=== PATIENT | male | born 1960 | race Caucasian/White ===

== ENCOUNTER → 2019-10-15 11:50 | Outpatient (CLI) | payer OTHER, SELFPAY ==
--- NOTE | ~2019-10-15 | XR_ITS ---
EXAMINATION: XR chest 2V DATE: 10/15/2019 11:59 INDICATION: Pneumonia, unspecified organism. TECHNIQUE: Frontal and lateral views of the chest were obtained. COMPARISON: Chest 2 views 04/23/2013 FINDINGS: There is mild atelectasis in right lower lung zone. No pleural effusion or pneumothorax. Th e heart size is normal. IMPRESSION: 1. Mild atelectasis in right lower lung zone. Reviewed, dictated and finalized at location A. OR VICE PRESIDENT AND CHIEF INFORMATION OFFICER
== END ==
PROVIDERS: PCP Physician Assistant; Visit Provider Physician Assistant
DX: J18.9 Pneumonia, unspecified organism (principal); R91.8 Other nonspecific abnormal finding of lung field
CPT/HCPCS: 71046

== ENCOUNTER → 2019-11-05 08:36 | Outpatient (CLI) | payer OTHER, SELFPAY ==
--- NOTE | ~2019-11-05 | MR_ITS ---
EXAMINATION: MR knee LT wo con DATE: 11/05/2019 09:17 INDICATION: Medial meniscal tear presenting with left knee pain and popping. TECHNIQUE: Magnetic resonance imaging (MRI) of the left knee was performed without intravenous contra st. Sequences included coronal PD-weighted FSE, coronal PD-weighted FS FSE, sagittal T2-weighted FSE , sagittal PD-weighted FS FSE and axial PD weighted fat saturated FSE. COMPARISON: None. FINDINGS: Medial compartment: Longitudinal vertical tear extending to the intra-articular surface and the peripheral third of the p osterior horn of the meniscus extending anteriorly into the body where it appears to progress to also involve the superior articular surface and the peripheral third. Chondral fissuring with subtle unde rlying cortical irregularity and a couple tiny subarticular cysts at the posterior weightbearing medi al femoral condyle. Lateral compartment: Lateral meniscus is normal. Partial-thickness cartilage loss with smooth chondral surface along the l ateral side of the posterior weightbearing lateral femoral condyle. Patellofemoral compartment: Patellar chondral ulceration and deep fissuring centered at the patellar apical ridge with underlying mild cortical irregularity and underlying mild subarticular edema. Trochlear cartilage is normal. Ligaments and tendons: Anterior and posterior cruciate ligaments are normal. The medial collateral ligament and fibular marek ateral ligament complex are normal. Mild tendinopathy at the distal quadriceps and proximal patellar tendons. The visualized medial and lateral hamstring tendons as well as the iliotibial band are darryl l. Fluid: Small amount of fluid in the lateral gutter of the suprapatellar pouch which is within normal limits. No loose osteochondral bodies identified. Osseous/other: Bone alignment is normal. Small bone island at the medial femoral condyle. No fracture or pathologic marrow replacing process. IMPRESSION: 1. Longitudinal vertical tear in the peripheral third of the body and posterior horn of the medial me niscus. 2. Mild tricompartmental osteoarthritis with small regions of high-grade chondromalacia along the pat curtis and lateral weightbearing medial femoral condyle. Reviewed, dictated and finalized at location A. IMPRESSION: 1. Longitudinal vertical tear in the peripheral third of the body and posterior horn of the medial meniscus. 2. Mild tricompartmental osteoarthritis with small regions of high-grade chondr omalacia along the patella and lateral weightbearing medial femoral condyle.
== END ==
PROVIDERS: PCP Internal Medicine; Visit Provider Orthopaedic Surgery
DX: S83.242A Other tear of medial meniscus, current injury, left knee, initial encounter (principal); M17.11 Unilateral primary osteoarthritis, right knee
CPT/HCPCS: 73721

== ENCOUNTER 2020-01-23 00:13 | Outpatient (CLI) | payer OTHER, SELFPAY ==
[2020-01-24 13:10] LABS: SARS-CoV-2 RNA PCR Negative
== END 2020-01-23 00:14 | disposition home or self-care (01) ==
LOC: ANHCOVIDDT 00:13
PROVIDERS: PCP Internal Medicine; Visit Provider Orthopaedic Surgery
DX: Z01.818 Encounter for other preprocedural examination (principal); Z11.59 Encounter for screening for other viral diseases
CPT/HCPCS: 87635; C9803; U0003

== ENCOUNTER 2020-01-23 08:50 | Outpatient (CLI) | payer OTHER, SELFPAY ==
--- NOTE | 2020-01-23 08:56 | ECG_ITS ---
Measurements Intervals [place] Rate: 55 P: 34 SC: 183 QRS: -38 QRSD: 97 T: 3 QT: 405 QTc: 388 Interpretive Statements SINUS BRADYCARDIA ATRIAL PREMATURE COMPLEXES LEFT AXIS DEVIATION INCOMPLETE RIGHT BUNDLE BRANCH BLOCK DELAYED PRECORDIAL R/S TRANSITION LOW QRS VOLTAGE IN PRECORDIAL LEADS BORDERLINE T WAVE ABNORMALITY- INFERIOR LEADS BORDERLINE ECG Electronically Signed On 01-23-2020 9:19:14 CDT by Kevin Colmenares D.O.
== END 2020-01-23 08:51 | disposition home or self-care (01) ==
LOC: ANHSURGERY 08:56
PROVIDERS: PCP Internal Medicine; Visit Provider Orthopaedic Surgery
DX: Z01.818 Encounter for other preprocedural examination (principal); I10 Essential (primary) hypertension
CPT/HCPCS: 93005

== ENCOUNTER 2020-01-25 00:31 | Day surgery (SDC) | payer OTHER, SELFPAY ==
[2020-01-15 17:43] VITALS: BMI 39.8
[2020-01-25] VITALS (8 sets, daily range): BP systolic 120–158; BP diastolic 69–83; PULSE 55–77; RESP 10–18; TEMP 35.8–36.1; O2SAT 92–100
--- NOTE | 2020-01-25 07:25 | WPDHPUPDATE1 ---
History and Physical Update Update Date/Time: 01/25/20 07:25 History and Physical has been reviewed, including an updated exam of the patient. There are NO changes in the patient's condition. Risks, benefits, and alternatives have been discussed and questions answered. Patient agrees to proceed with procedure.
[2020-01-25 07:55] LABS: Glucose Point of Care 133 (65-105)
[2020-01-25] MEDS: LACTATED RINGERS 1,000 ML 30 ML IV CONT ×2 (07:55→10:22)
--- NOTE | 2020-01-25 08:38 | WPDANESEPPF ---
Anes - Initial Pre Proc Eval Procedure: Operation Date: 01/25/20 09:15 Proposed Procedures p Left Knee Arthroscopic Partial Medial Meniscectomy - Vito Marcial MD Date/Time: 01/25/20 08:38 Surgeon: Vito Marcial MD Pre Op Diagnosis: Left Knee Medial Meniscus Tear Patient Data Age: 59 Gender: M Height: 5 ft 11 in Weight: 132.8 kg Last Vital Signs Temp 96.9 F L 01/25/20 07:14 Pulse 55 L 01/25/20 07:14 Resp 18 01/25/20 07:14 BP 158/75 H 01/25/20 07:14 Pulse Ox 96 01/25/20 07:14 Allergies Allergy/AdvReac Type Severity Reaction Status Date / Time No Known Allergies Allergy Verified 01/25/20 07:56 Home Medications Medication Instructions Recorded Confirmed Type albuterol sulfate 90 mcg/actuation 2 puff INHALATION Q4-6H PRN gm 09/03/19 01/25/20 History aerosol inhaler azelastine 0.15 % (205.5 mcg) 2 spray NASAL DAILY 09/03/19 01/25/20 History nasal spray coenzyme Q10 100 mg capsule 100 mg PO DAILY 09/03/19 01/25/20 History esomeprazole magnesium 20 mg 20 mg PO DAILY 09/03/19 01/25/20 History capsule,delayed release fluticasone 250 mcg-salmeterol 50 1 inhalation INHALATION BID 09/03/19 01/25/20 History mcg/dose blistr powdr for inhalation omega-3 fatty acids 1,000 mg 1,000 mg PO DAILY 09/03/19 01/25/20 History capsule cholecalciferol (vitamin D3) 25 1,000 unit PO DAILY 09/04/19 01/25/20 History mcg (1,000 unit) capsule glucosamine-chondroitin 250 mg-200 1 tablet PO ONCE tablet 09/04/19 01/25/20 History mg tablet multivitamin 1 tablet PO DAILY 09/04/19 01/25/20 History valsartan 320 1 tablet PO DAILY #90 tablet 09/04/19 01/25/20 Rx mg-hydrochlorothiazide 25 mg tablet citalopram 10 mg tablet 10 mg PO DAILY #90 tablet 11/13/19 01/25/20 Rx levothyroxine 200 mcg tablet 200 mcg PO DAILY #90 tablet 11/13/19 01/25/20 Rx levothyroxine 25 mcg tablet See Rx Instructions .ROUTE 01/03/20 01/25/20 Rx .COMPLEX #90 tablet carvedilol 25 mg tablet 25 mg PO Q12H #180 tablet 01/08/20 01/25/20 Rx ibuprofen 800 mg tablet 800 mg PO TID #270 tablet 01/08/20 01/25/20 Rx Laboratory Tests 01/25/20 07:51 POC Capillary Glucose 133 mg/dl H mg/dl (65-105) Patient hx anesthesia problems: none Family hx anesthesia problems: none PMFSH Past Medical History Medical History (Updated 01/25/20 @ 08:38 by Dawit Moore MD) Acute medial meniscus tear of left knee Essential (primary) hypertension History of carpal tunnel syndrome Pure hypercholesterolemia Surgical History Surgical History History of arthroscopy of shoulder History of cholecystectomy History of elbow surgery Social History Social History Smoking status: Former smoker Second hand tobacco smoke exposure: No Smoking end date: 08/15/10 Alcohol intake: current Gender identity (if verbalized by the patient): Male Anes - Eval Final PreProcedure Day of Procedure 01/25/20 08:38 Patient weight: morbidly obese Heart: regular rate and rhythm Lungs: clear to auscultation Airway: Mallampati scale class III Neurological: alert and oriented Last oral intake: >/= 8 hours ASA classification: III Emergent: no Anesthetic plan: proceed Anesthesia type and monitoring: general LMA and standard monitoring Informed Consent: The patient's anesthetic plan and its attendant risks and benefits were discussed with the patient/family/POA. Questions were solicited and answers provided to the satisfaction of the patient/family/POA.
[2020-01-25] MEDS: ceFAZolin 3 GM/D5W 100 ML 100 ML IVPB (09:14)
[2020-01-25] MEDS: BUPIVACAINE/EPINEPHRINE 0.5% 10 ML VIAL 20 ML INFILTRATE (09:34)
--- NOTE | 2020-01-25 16:32 | PM.PROC ---
Procedure Note - Detailed Date of procedure: 01/25/20 Pre-op diagnosis: Left Knee Medial Meniscus Tear Post-op diagnosis: same Procedure performed: Arthroscopic partial medial meniscectomy. Description of procedure: The medial meniscus showed extensive tearing. The posterior medial horn was involved with a large unstable fragment. This was pulled into the joint. Debridement was accomplished with the arthroscopic shaver and punches. The radiofrequency probe was also used. This was close to subtotal. There were some remaining peripheral fibers. Anesthesia: GETA Surgeon: Vito Marcial MD Estimated blood loss (mL): 5 Complications: None Condition: stable Findings: Procedure Details: The patient was identified and the surgical site confirmed and signed in the preoperative holding area. Antibiotics were started per protocol. She was brought to the operative room and transferred to the OR table. A general anesthetic was administered. Supine position with the operative lower extremity position in the leg lew after placement of a well padded tourniquet. The leg support was lowered and the contralateral limb was supported with a soft bolster. The knee was prepped and draped in the usual sterile fashion. A time-out was performed. The portal sites were marked and infiltrated with 0.5% Marcaine 20 mL. The limb was exsanguinated and the tourniquet inflated to 300 mL Hg. Standard inferolateral and inferomedial portals were established. Inflow was obtained with the saline pump. The camera was introduced. Diagnostic inspection of the joint was accomplished. The meniscus was debrided with the arthroscopic shaver and punches until stable. The arthroscopic instruments were removed. The tourniquet released and wounds closed with subcutaneous 3-0 Monocryl absorbable suture. Steri strips and a sterile dressing were applied. A light elastic wrap was placed. The patient was extubated and brought to the recovery room in stable condition.
== END 2020-01-25 12:00 | disposition home or self-care (01) ==
PROVIDERS: PCP Internal Medicine; Visit Provider Orthopaedic Surgery
PROC: (CPT 29870; principal; 2020-01-25 09:15)
DX: S83.242A Other tear of medial meniscus, current injury, left knee, initial encounter (principal); X50.0XXA Overexertion from strenuous movement or load, initial encounter; I10 Essential (primary) hypertension; E78.00 Pure hypercholesterolemia, unspecified; Z87.891 Personal history of nicotine dependence; E66.01 Morbid (severe) obesity due to excess calories; Z68.41 Body mass index [BMI] 40.0-44.9, adult
CPT/HCPCS: 29881; J0690; J1100; J2250; J2405; J2704; J3010; J7120

== ENCOUNTER 2020-02-04 12:42 | Outpatient (RCR) | payer OTHER, SELFPAY ==
--- NOTE | 2020-02-04 13:58 | PTOPEVAL ---
PHYSICAL THERAPY EVALUATION AND PLAN OF CARE Thank you for referring Yong Barton to [facility]. Yong will participate with HEP and will follow up in 30 days or less if he has questions. Please review, sign, date and return this plan of care JANNY. I agree with and certify that the following plan of care is medically necessary. Referring Physician Date Attending Provider: Vito Marcial MD Evaluation Diagnosis left knee arthroscopy Onset 01/25/2020 Subjective Information Yong reports he has been Query Text:As Reported By Patient/ doing well since surgery. No Family pain to speak of. He continues to ice and use a compression wrap on occasion. He briefly used a walker per his 's request. Returns to work on Tuesday. No reservations at this time. Self Report Pain Assessment Left Knee(s) Reported Pain Level 0 Lowest Pain Intensity 0 Greatest Pain Intensity 3 Pain Aggravating Factors None Lower Extremity Range of Motion Knee Range of Motion Left Knee Flexion Range of Motion - Active 122 Knee Extension Range of Motion - Active 0 Query Text: Lower Extremity Muscle Strength Testing Hip Strength Left Hip Flexion Strength 5 Normal Hip Extension Strength 5 Normal Hip Abduction Strength 5 Normal Knee Strength Left Knee Flexion Strength 5 Normal Knee Extension Strength 4+ Good + Knee Strength Comments single leg stand [id number] each side 5 Time Sit to Stand Time in Seconds 9.28 Gait Pattern No Deviations/Normal Stair Climbing Assessment Weight Bearing Status - Left Full Weight Bearing Status - Right Full Maintains Weight Bearing Status Yes Number of Steps Climbed (Steps) 7 Number of Repetitions (Repetitions) 1 Technique Alternating Steps Stair Climbing Direction Both Up and Down Stair Climbing Ability Independent PT Clinical Summary Yong is a 59 yo male presenting to outpatient physical therapy 10 days s/p left knee arthroscopy. He presents with good balance and strength; however, does demonstrate mild decreased activation and endurance of quadriceps muscles. His 5xSTS is WNL and he performs stair climbing with alternating
--- NOTE | 2020-03-13 08:38 | PCPTNOTE ---
PHYSICAL THERAPY DISCHARGE NOTIFICATION Attending Provider: Vito Marcial MD Patient:Yong Barton Date of :1960 Yong wa seen on 02/04/2020 for initial evaluation following left knee arthroscopy. At the time, he was provided with HEP and he requested to place chart on hold. We held chart for 30 days and he did not call or communicate indicating that he was comfortable with HEP and his knee was doing well. He will discharged at this time. Thank you for referring this patient to [facility]. Please review, sign, date and return this discharge summary JANNY. I have been updated about the patient's current status and I agree with discharge from the above service at this time. Referring Physician Date
== END 2020-03-13 11:34 | disposition home or self-care (01) ==
LOC: ANHPT 12:42
PROVIDERS: PCP Internal Medicine; Visit Provider Orthopaedic Surgery
DX: Z48.89 Encounter for other specified surgical aftercare (principal)
CPT/HCPCS: 97110; 97161

== ENCOUNTER 2020-06-12 06:53 | Outpatient (NON) | payer OTHER, SELFPAY ==
[2020-06-12 17:44] LABS: SARS-CoV-2 RNA PCR Negative
== END 2020-06-12 06:54 ==
LOC: ANHCOVIDDT 07:05
PROVIDERS: PCP Internal Medicine; Visit Provider Internal Medicine
DX: J02.9 Acute pharyngitis, unspecified (principal); Z20.828 Contact with and (suspected) exposure to other viral communicable diseases
CPT/HCPCS: 87635; C9803; U0003

== ENCOUNTER 2022-03-08 11:16 | Observation (INO) | payer OTHER, SELFPAY ==
--- NOTE | ~2022-03-08 | MR_ITS ---
EXAMINATION: MR renal wo/w con INDICATION: Left kidney mass on CT TECHNIQUE: Coronal SSFSE ARC, WATER:coronal LAVA-FLEX, Coronal 2D FIESTA FatSat, Axial SSFSE BH ARC, Axial 3D DualEcho BH, Axial SSFSE-IR, Axial DWI b=500, Axial 2D FIESTA FatSat, pre and dynamic postco ntrast Axial LAVA ARC, postcontrast Coronal In and Opposed phase LAVA FLEX COMPARISON: CT, 03/08/2022 CONTRAST: Multihance, 20 cc FINDINGS: Cysts of the liver measure up to 2 cm in the left hepatic lobe. The gallbladder is surgical ly absent. The spleen, pancreas, and adrenal glands are normal. There are multiple simple and hemorrh agic cysts of the kidneys. There is a 1.5 cm lesion in the left kidney upper pole which demonstrates intermediate T1 and T2 signal intensity and no enhancement after contrast administration, consistent with a proteinaceous cyst. There are no pathologically enlarged abdominal lymph nodes. No dilated loo ps of bowel are identified. IMPRESSION: 1. Proteinaceous cyst of the left kidney upper pole corresponding to the lesion questioned on CT. Reviewed, dictated and finalized at location B.
--- NOTE | ~2022-03-08 | CT_ITS ---
EXAMINATION: CT abdomen pelvis wo con DATE: 03/08/2022 12:32 INDICATION: Vomiting, diarrhea and abdominal pain. TECHNIQUE: Computed tomography (CT) of the abdomen and pelvis was performed without intravenous contr ast. The dose-length product was 1553.43 mGy-cm. Automated exposure control and iterative reconstruct ion technique were employed. COMPARISON: CT dated 11/21/2006. FINDINGS: Bibasilar dependent atelectasis. Heart size normal. There are multiple right renal cyst. Th ere is a hyperdense cyst exophytic anteriorly from the right kidney. There is a intermediate density exophytic left renal mass at the lower pole. There is an intermediate density 1.5 cm left renal mass of the upper pole. Correlation with MRI with contrast recommended. There is a small low-density lesio n of the left hepatic lobe. Status post cholecystectomy. The spleen, pancreas, adrenal glands are unr emarkable. Nonobstructive bowel gas pattern. There is acute sigmoid diverticulitis with small fluid c ollection anterior to the colon, image 138 measuring 2.4 x 1.3 cm, suspicious for peridiverticular ab scess. Bladder wall is mildly thickened which may be due to underdistention although cystitis not exc luded. No free air identified. No significant vascular abnormality. No lymphadenopathy. Moderate lumb ar spondylosis. IMPRESSION: 1. Acute sigmoid diverticulitis with possible small peridiverticular abscess. 2: Intermediate density masses of the left kidney. Correlation with contrast-enhanced MRI recommended . 3: Mildly thickened bladder which may be due to to underdistention or cystitis. Reviewed, dictated and finalized at location A. IMPRESSION: 1. Acute sigmoid diverticulitis with possible small peridiverticular abscess. 2: Intermediate density masses of the left kidney. Correlation with contrast-en hanced MRI recommended. 3: Mildly thickened bladder which may be due to to underdistention or cystitis.
[2022-03-08 11:30] VITALS: BP 120/63; PULSE 64; RESP 16; TEMP 36.7; O2SAT 95
[2022-03-08 11:51] LABS: Basophils Percent Auto 0.2 % (0.2-1.2); Eosinophils Percent Auto 0.4 % (0-4.4); Hematocrit 36.6 % (42.0-52.0); Hemoglobin 11.7 g/dL (14.0-18.0); Immature Granulocyte Absolute 0.06 K/mm3 (0.00-0.031); Immature Granulocyte Percent A 0.5 % (0-0.5); Lymphocytes Percent Auto 12.3 % (18.3-44.2); Mean Corpuscular Hemoglobin 30.2 pg (26-34); Mean Corpuscular Volume 94.3 fl (80-100); Mean Platelet Volume 10.3 fl (7.4-10.4); Monocytes Absolute Auto 0.7 K/mm3 (0.1-0.6); Monocytes Percent Auto 6.3 % (2.6-8.5); Neutrophils Absolute Auto 9.1 K/mm3 (1.3-6.7); Neutrophils Percent Auto 80.3 % (45.5-73.1); Platelet Count Result 204 k/mm3 (150-375); Red Blood Count 3.88 M/mm3 (4.6-6.20); Red Cell Distribution Width 13.7 % (11.5-14.5); White Blood Count 11.4 K/mm3 (4.5-10.0)
[2022-03-08 12:00] LABS: Alanine Aminotransferase 21 U/L (6-50); Albumin Level 4.2 g/dL (3.5-5.1); Alkaline Phosphatase 46 U/L (38-126); Anion Gap 11 mmol/L (8-16); Aspartate Amino Transferase 17 U/L (17-59); Bilirubin,Total 1.2 mg/dL (0.2-1.3); Blood Urea Nitrogen 19 mg/dL (9-20); Calcium 8.9 mg/dL (8.4-10.2); Carbon Dioxide 27 mmol/L (22-30); Chloride 98 mmol/L (98-107); Estimated CRCL calculation 56 ml/min; Estimated Glomerular Filt Rate 41; Glucose 146 mg/dL (65-110); Lipase 43 U/L (23-300); Potassium 3.6 mmol/L (3.4-5.0); Sodium 136 mmol/L (137-145)
--- NOTE | 2022-03-08 12:08 | ED.ABDPAIN ---
HPI - Abdominal Pain General Chief Complaint: Abdominal Pain Stated Complaint: Abdominal Pain Time Seen by Provider: 03/08/22 11:50 Source: RN notes reviewed History of Present Illness HPI narrative: Patient presents emergency department from home for left side abdominal pain. Patient states that symptoms began 2 days ago with numerous episodes of diarrhea. He states that that evening he developed pain in his left lower abdomen did not radiate pain is described as sharp and stabbing. States the diarrhea has improved at this time but continues to have left-sided abdominal pain. States he took hydrocodone for the pain this morning he denies any fevers or chills chest pain shortness of breath or any other symptoms Related Data Home Medications Medication Instructions Recorded Confirmed azelastine 205.5 mcg (0.15 %) 2 spray intranasal DAILY 09/03/19 10/19/21 nasal spray coenzyme Q10 100 mg capsule (Co 100 mg PO DAILY 09/03/19 10/19/21 Q-10) esomeprazole magnesium 20 mg 20 mg PO DAILY 09/03/19 10/19/21 capsule,delayed release (Nexium) omega-3 fatty acids 1,000 mg 1,000 mg PO DAILY 09/03/19 10/19/21 capsule (Fish Oil Concentrate) cholecalciferol (vitamin D3) 25 1,000 unit PO DAILY 09/04/19 10/19/21 mcg (1,000 unit) capsule glucosamine-chondroitin 250 mg-200 1 tablet PO ONCE 09/04/19 10/19/21 mg tablet (Osteo Bi-Flex) multivitamin (Multiple Vitamins 1 tablet PO DAILY 09/04/19 10/19/21 tablet) Allergies Allergy/AdvReac Type Severity Reaction Status Date / Time No Known Allergies Allergy Verified 10/19/21 13:42 Review of Systems Review of Systems: Gen.: Denies fevers or chills ENT: Denies congestion Respiratory: Denies shortness of breath or cough CV: Denies chest pain or palpitations GI: See HPI Musculoskeletal: Denies back pain or muscle pain Neuro: Denies numbness, tingling, weakness or focal weakness Skin: Denies rash Except as documented, all other systems reviewed and negative PMFSH Past Medical History Medical History Acute medial meniscus tear of left knee Essential (primary) hypertension History of carpal tunnel syndrome Pure hypercholesterolemia Surgical History Surgical History H/O lateral meniscus repair of left knee History of arthroscopy of shoulder History of cholecystectomy History of elbow surgery Family History Family History Father Family history of respiratory disorder, Onset Age: 88 Patient's father is Mother Patient's mother is Other Hypertension Social History Social History Smoking status: Former smoker Second hand tobacco smoke exposure: No Smoking end date: 08/15/10 Alcohol intake: current Alcohol use details: very rarely Substance use: never Gender identity (if verbalized by the patient): Male Exam Narrative: APPEARANCE: No acute distress, nontoxic, resting in bed HEENT: Normocephalic, atraumatic, OMM RESPIRATORY: No respiratory distress, clear to auscultation bilaterally with no rhonchi wheezing or rales CARDIOVASCULAR: RRR s murmur ABDOMINAL: Soft nondistended tender palpation left lower quadrant no tenderness left upper quadrant, right upper quadrant right lower quadrant no rebound or guarding MUSCULOSKELETAl: Moves all extremities. No clubbing, cyanosis or edema. NEURO: Awake and alert. Following commands, speech normal, no focal deficits SKIN:: Warm, dry. Normal Color PSYCHIATRIC: Normal affect/mood Course Course Emergency Course: Discussed with Dr. Santoro recommends admission with patient placed on Zosyn with surgery to consult Discussed Dr. Michaud agrees with admission Discussed with patient and family results of workup and diagnosis. Discussed need for admiss
[2022-03-08 14:30] VITALS: BP 132/76; PULSE 74; RESP 14; O2SAT 97
--- NOTE | 2022-03-08 14:30 | PM.IMHP ---
H&P: HPI History of Present Illness Date/Time: 03/08/22 15:30 Chief Complaint: Abdominal pain. Narrative: This is a pleasant 61-year-old male with hypertension, dyslipidemia, diabetes, and hypothyroidism who presented to the ED from home for evaluation of abdominal pain. On Tuesday he awoke with mild discomfort left lower quadrant which has gotten progressively worse since that time. The pain is described as a cramping sensation and it does not radiate. It is worse with movement and palpation and seems to improve somewhat with hydrocodone. He also reports innumerable bouts of liquid, nonbloody diarrhea on Tuesday but that has since improved. His appetite has been poor and he has been trying to eat a bland diet to avoid diarrhea and fact he has not had any bowel movements for the past 24 hours. He has not had any fever to his knowledge but he has had chills and hot sweats. He decided come in today as his pain has been persistent though not necessarily worse. CT of the abdomen and pelvis shows acute sigmoid diverticulitis with possible small peridiverticular abscess and he is being admitted in this setting. He was told after previous colonoscopies that there was evidence of diverticulosis but he has no history of diverticulitis. Review of Systems Review of Systems: Twelve systems were reviewed. He completed his COVID vaccination series. He has had COVID twice, once in spring 2019 and earlier this year. No recent cold or flu symptoms. He denies chest pain shortness of breath. No cough. No vomiting. No dysuria or hematuria. Weight has remained stable. Does not check his glucose often but his last hemoglobin A1c was below 7%. Except as documented, all other systems were reviewed and are negative. [facility] Past Medical History Medical History Asthma Dyslipidemia Essential (primary) hypertension Insomnia Type 2 diabetes mellitus Surgical History Surgical History (Updated 03/08/22 @ 15:42 by Sofy Hu PA-C) History of arthroscopy of shoulder History of elbow surgery History of incisional hernia repair (2007) Laparoscopic incisional hernia repair. History of laparoscopic cholecystectomy (2006) History of lateral meniscus repair of left knee History of ventral hernia repair Open ventral hernia repair in without mesh Family History Family History Father Family history of respiratory disorder, Onset Age: 88 Patient's father is Mother Patient's mother is Other Hypertension Social History Social History Social History: Surrogate medical decision maker: Keyana Arias, . Code status: Full code. Smoking status: Former smoker Second hand tobacco smoke exposure: No Smoking end date: 08/15/10 Alcohol intake: current Alcohol use details: Rare alcohol use in moderation. 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 Meds Home Medications and Allergies Home Medications Medication Instructions Recorded Confirmed Type azelastine 205.5 mcg (0.15 %) 2 spray intranasal DAILY 09/03/19 10/19/21 History nasal spray coenzyme Q10 100 mg capsule (Co 100 mg PO DAILY 09/03/19 10/19/21 History Q-10) esomeprazole magnesium 20 mg 20 mg PO DAILY 09/03/19 10/19/21 History capsule,delayed release (Nexium) omega-3 fatty acids 1,000 mg 1,000 mg PO DAILY 09/03/19 10/19/21 History capsule (Fish Oil Concentrate) cholecalciferol (vitamin D3) 25 1,000 unit PO DAILY 09/04/19 10/19/21 History mcg (1,000 unit) capsule glucosamine-chondroitin 250 mg-200 1 tablet PO ONCE 09/04/19 10/19/21 History mg tablet (Osteo Bi-Flex) multivitamin (Multiple Vitamins 1
--- NOTE | 2022-03-08 15:09 | PM.CNGS ---
Assessment and Plan Assessment and plan (1) Diverticulitis of intestine with abscess: Code(s): K57.80 - Diverticulitis of intestine, part unspecified, with perforation and abscess without bleeding Status: Acute Assessment and Plan: CT reviewed and discussed with the patient in detail. He has evidence of acute sigmoid diverticulitis with a small peridiverticular abscess. No large amount of free intraperitoneal air. This is his first episode of diverticulitis. His abdominal pain seems controlled at this time and he has not required any IV pain medication in the ER. We would recommend to continue treating this conservatively with broad-spectrum IV antibiotics, IV fluids, and analgesics as needed. Okay to start clear liquids now. We will continue to monitor with serial abdominal exams and repeat labs tomorrow. Thank you for allowing us to see the patient in consultation and we will continue to follow along with you. (2) Renal failure: Code(s): N19 - Unspecified kidney failure Status: Acute Assessment and Plan: Creatinine 1.7 on admission. Management per hospitalist. Continue IV fluids, monitor labs. (3) Type 2 diabetes mellitus: Code(s): E11.9 - Type 2 diabetes mellitus without complications Status: Acute (4) Essential (primary) hypertension: Code(s): I10 - Essential (primary) hypertension Status: Acute (5) Dyslipidemia: Code(s): E78.5 - Hyperlipidemia, unspecified Status: Acute (6) Hypothyroidism: Code(s): E03.9 - Hypothyroidism, unspecified Status: Acute (7) Obesity (BMI 30-39.9): Code(s): E66.9 - Obesity, unspecified Status: Acute (8) Left renal mass: Code(s): N28.89 - Other specified disorders of kidney and ureter Status: Acute Assessment and Plan: Incidentally noted on CT. Plan I have discussed the patient's case and plan of care with Dr. Santoro. History of Present Illness Consult details Consult date: 03/08/22 Reason for consult: other (Acute sigmoid diverticulitis with small pericolonic abscess) Requesting physician: Maik Esposito DO Narrative: This is a 61-year-old male with a history of hypertension, hypercholesterolemia, hypothyroidism, and type 2 diabetes mellitus, who presented to the ER today with complaints of left lower quadrant abdominal pain x2 days. He reports an onset of diarrhea and bloating 2 days ago. Throughout the day, he developed left lower quadrant abdominal pain. The diarrhea improved, but his abdominal pain persisted. The pain was aggravated by movement and palpation. He reports a decreased appetite, but no nausea or vomiting. Denies fever or chills. He reports taking [place] for the pain at home, which helped. He reports the pain continued to worsen and he was unable to sleep last night due to the discomfort, therefore he came into the ER today for evaluation. CT scan of the abdomen and pelvis showed acute sigmoid diverticulitis with a small peridiverticular abscess. Also noted was an indeterminate density mass of the left kidney and a mildly thickened bladder wall. [place] [id number]. He was given 1 dose of IV Zosyn. He is being admitted in this setting. Our service is consulted by the ED physician for acute sigmoid diverticulitis with abscess. The patient is now seen in the ER. He denies a history of diverticulitis. He has had 2 colonoscopies in the past with the last being about 5-6 years ago that was reportedly normal. His previous abdominal surgeries include a ventral hernia repair, laparoscopic incisional hernia repair with mesh, and a laparoscopic cholecystectomy. Review of Systems Review of Systems: All systems reviewed & are unremarkable except as noted in HPI and below Constitutional: Constitutional: Reports no additional constitutional complaints, Denies chills, Denies fatigue, Denies fever(s) and Reports poor appetite
[2022-03-08 15:30] LABS: Appearance Urine Clear (Clear); Bilirubin Urine 1+ (Negative); Blood Urine Negative (Negative); Color Urine Yellow (Yellow); Glucose Urine UA Negative (Negative); Ketones Urine Trace mg/dL (Negative); Leukocyte Esterase Ur Negative LEU/UL (Negative); Nitrate Urine Negative (Negative); Protein Urine 2+ mg/dL (Negative); pH Urine 5.5 (5.0-9.0)
[2022-03-08 15:41] LABS: SARS-CoV-2 RNA PCR Negative
[2022-03-08 15:57] LABS: Add Urine Microscopic? YES; Mucus Urine Rare /lpf; RBC Urine 0-2 /hpf (0-2)
[2022-03-08 17:42] VITALS: BP 114/57; PULSE 60; RESP 16; TEMP 36.4; O2SAT 96
[2022-03-08] MEDS: SODIUM CHLORIDE 0.9% IV 1,000 ML 125 ML IV CONT (18:01)
[2022-03-08 18:05] VITALS: BP 124/54; PULSE 55; RESP 18; TEMP 36.4; O2SAT 95
[2022-03-08] MEDS: HYDROcodone/acetaminophen (*CRX) 7.5-325 MG TABLET 1 TAB PO (18:10)
[2022-03-08 18:15] VITALS: BMI 39.7
--- NOTE | 2022-03-08 18:36 | ADMGEN ---
This patient, Yong Barton, was admitted to Medical Room 244-. Patient/family oriented to hospital policies and general routines including ID bracelet, bed and alarms, visiting hours, pain management, procedures, bathroom and other care routines, personal items, smoking policy, room service/diet, and visiting hours. Information on how to activate the Rapid Response Team has been discussed. Patient/Family are encouraged to report perceived risks to care and to ask questions if they do not understand what they are told or what they should do.
[2022-03-08 19:00] LABS: Glucose Point of Care 94 mg/dl (65-105)
[2022-03-08 20:01] VITALS: BP 135/63; PULSE 62; RESP 20; TEMP 36.6; O2SAT 93
[2022-03-08 20:24] LABS: Glucose Point of Care 140 mg/dl (65-105)
[2022-03-08 20:40] VITALS: PULSE 62
[2022-03-08] MEDS: amLODIPine BESYLATE 5 MG TABLET PO (20:40)
[2022-03-08] MEDS: carvediloL 25 MG TABLET PO (20:40)
[2022-03-09] VITALS (7 sets, daily range): BP systolic 119–142; BP diastolic 57–64; PULSE 53–74; RESP 16–20; TEMP 36.4–36.8; O2SAT 90–96
[2022-03-09] MEDS: ZOLPIDEM TARTRATE (*CRX) 5 MG TABLET 10 MG PO (00:08)
[2022-03-09] MEDS: SODIUM CHLORIDE 0.9% IV 1,000 ML 125 ML IV CONT ×3 (02:09→20:20)
[2022-03-09 05:19] LABS: Basophils Percent Auto 0.3 % (0.2-1.2); Eosinophils Absolute Auto 0.1 K/mm3 (0-0.3); Hematocrit 32.7 % (42.0-52.0); Hemoglobin 10.6 g/dL (14.0-18.0); Immature Granulocyte Absolute 0.04 K/mm3 (0.00-0.031); Immature Granulocyte Percent A 0.5 % (0-0.5); Lymphocytes Absolute Auto 1.41 K/mm3 (0.9-3.2); Mean Corpuscular HGB Conc 32.4 g/dl (32-36); Mean Corpuscular Hemoglobin 30.3 pg (26-34); Mean Corpuscular Volume 93.4 fl (80-100); Mean Platelet Volume 10.6 fl (7.4-10.4); Monocytes Absolute Auto 0.6 K/mm3 (0.1-0.6); Monocytes Percent Auto 7.4 % (2.6-8.5); Neutrophils Absolute Auto 5.7 K/mm3 (1.3-6.7); Neutrophils Percent Auto 72.8 % (45.5-73.1); Platelet Count Result 177 k/mm3 (150-375); Red Cell Distribution Width 13.6 % (11.5-14.5); White Blood Count 7.9 K/mm3 (4.5-10.0)
[2022-03-09 05:31] LABS: Alanine Aminotransferase 16 U/L (6-50); Albumin Level 3.5 g/dL (3.5-5.1); Alkaline Phosphatase 38 U/L (38-126); Anion Gap 10 mmol/L (8-16); Aspartate Amino Transferase 15 U/L (17-59); Blood Urea Nitrogen 21 mg/dL (9-20); Calcium 8.8 mg/dL (8.4-10.2); Carbon Dioxide 28 mmol/L (22-30); Chloride 98 mmol/L (98-107); Estimated CRCL calculation 60 ml/min; Estimated Glomerular Filt Rate 44; Glucose 104 mg/dL (65-110); Magnesium 1.6 mg/dL (1.6-2.3); Potassium 3.3 mmol/L (3.4-5.0); Sodium 136 mmol/L (137-145)
[2022-03-09] MEDS: LEVOTHYROXINE SODIUM 25 MCG TABLET BY MOUTH (06:20)
[2022-03-09] MEDS: LEVOTHYROXINE SODIUM 100 MCG TABLET 200 MCG PO (06:20)
[2022-03-09 07:57] LABS: Glucose Point of Care 113 mg/dl (65-105)
[2022-03-09] MEDS: carvediloL 25 MG TABLET PO ×2 (08:31→20:21)
[2022-03-09] MEDS: MULTIVITAMINS THERAPEUTIC TAB (*BKC) 1 TABLET PO (08:31)
[2022-03-09] MEDS: OMEGA 3 POLYUNSAT FATTY ACIDS 1 GM CAP PO (08:31)
[2022-03-09] MEDS: FENOFIBRATE 160 MG TABLET PO (08:32)
[2022-03-09] MEDS: CHOLECALCIFEROL 1,000 UNITS TABLET 1000 UNITS PO (08:32)
[2022-03-09] MEDS: CITALOPRAM HYDROBROMIDE 10 MG TABLET PO (08:33)
--- NOTE | 2022-03-09 08:33 | PM.PNGS ---
Progress Note: A&P Assessment and Plan (1) Abscess of sigmoid colon due to diverticulitis: Code(s): K57.20 - Diverticulitis of large intestine with perforation and abscess without bleeding Status: Acute Assessment and Plan: WBC normalized but patient still having some tenderness. Continue IV antibiotics. Full liquids for lunch. Continue observing for any increase in pain. (2) Renal failure: Code(s): N19 - Unspecified kidney failure Status: Acute Assessment and Plan: Cr still 1.6 today. Continue IV hydration, monitor urine output. (3) Left renal mass: Code(s): N28.89 - Other specified disorders of kidney and ureter Status: Acute Assessment and Plan: Further workup per Hospitalist/PCP (4) Type 2 diabetes mellitus: Code(s): E11.9 - Type 2 diabetes mellitus without complications Status: Acute (5) Essential (primary) hypertension: Code(s): I10 - Essential (primary) hypertension Status: Acute Subjective Subjective Date/Time Seen: 03/09/22 08:33 Interval history: Still having some LLQ pain. No fevers. Passing flatus. Exam GI: Inspection: obesity GI Palp: Yes Soft to palpation, Yes Tenderness to palpation present (GI) (LLQ), No Guarding due to palpation present (GI) and No Rebound tenderness present Objective Data Vital Signs Vital Signs: Vital Signs - 24 hr 03/08/22 11:30 03/08/22 14:30 03/08/22 17:42 Temperature 36.7 C 36.4 C Pulse Rate 64 74 60 Respiratory Rate 16 14 16 Blood Pressure 120/63 132/76 114/57 L Pulse Oximetry 95 97 96 Oxygen Delivery 03/08/22 18:05 03/08/22 18:00 03/08/22 20:01 Temperature 36.4 C 36.6 C Pulse Rate 55 L 62 Respiratory Rate 18 20 Blood Pressure 124/54 L 135/63 Pulse Oximetry 95 93 Oxygen Delivery Room Air 03/08/22 20:40 03/09/22 04:04 Temperature 36.5 C Pulse Rate 62 63 Respiratory Rate 18 Blood Pressure 139/64 Pulse Oximetry 90 Oxygen Delivery Intake/Output Intake/Output: Intake & Output 03/06/22 03/07/22 03/08/22 03/09/22 23:59 23:59 23:59 23:59 Intake Total 100 1340 Output Total 425 400 Balance -325 940 Meds/Results Medications: Active Medications Generic Name Dose Route Start Last Admin Trade Name Freq PRN Reason Stop Dose Admin Acetaminophen 650 mg 03/08/22 15:58 Acetaminophen 325 Mg Tablet PO Q6H PRN Mild Pain (1-3) or Fever Hydrocodone Bitart/Acetaminophen 1 tab 03/08/22 15:58 03/08/22 18:10 Hydrocodone/Acetaminophen (*Crx) 7.5-325 Mg Tablet PO 1 tab Q6H PRN Administration Pain Rated 4-6 Albuterol 2 puff 03/08/22 19:13 Albuterol Sulfate (*Sp) Aerosol 1 Puff INHALATION Q4HRT PRN wheezing Amlodipine Besylate 5 mg 03/08/22 21:00 03/08/22 20:40 Amlodipine Besylate 5 Mg Tablet PO 5 mg HS JESSA Administration Azelastine HCl 2 spray 03/09/22 09:00 Azelastine Hcl Nasal 0.1% 137 Mcg/Spr 30 Ml Btl NASAL DAILY JESSA Carvedilol 25 mg 03/08/22 21:00 03/08/22 20:40 Carvedilol 25 Mg Tablet PO 25 mg Q12H JESSA Administration Citalopram Hydrobromide 10 mg 03/09/22 09:00 Citalopram Hydrobromide 10 Mg Tablet PO DAILY JESSA Dextrose 12.5 gm 03/08/22 15:58 Dextrose 50% 25 Gm/50 Ml Syringe IV PUSH PRN PRN Hypoglycemia Protocol Fenofibrate 160 mg 03/09/22 09:00 Fenofibrate 160 Mg Tablet PO DAILY JESSA Fish Oil 1 gm 03/09/22 09:00 [place] 3 Polyunsat Fatty Acids 1 Gm Cap PO DAILY JESSA Glucagon 1 mg 03/08/22 15:58 Glucagon For Inj 1 Mg Vial IM PRN PRN Hypoglycemia Protocol Glucose 15 gm 03/08/22 15:58 Glucose Oral Gel 15 Gm Of Glucse In 37.5 Gm Tube PO PRN PRN Hypoglycemia Protocol Piperacillin/Tazobactam/Dextrose 3.375 gm in 50 mls @ 100 mls/hr 03/08/22 20:00 03/09/22 02:39 Zosyn 3.375 Gm/D5w 50ml Pm IVPB Infused Q6H JESSA Infusion Sodium Chloride 1,000 mls @
[2022-03-09] MEDS: AZELASTINE HCL NASAL 0.1% 137 MCG/SPR 30 ML BTL 2 SPRAY NASAL (08:34)
[2022-03-09] MEDS: MORPHINE SULFATE (*CRX) 2 MG/ML INJ IV PUSH (08:36)
[2022-03-09] MEDS: FLUTICASONE/SALMETEROL 115-21 MCG INHALER 1 PUFF 2 PUFF INHALATION ×2 (09:00→20:00)
[2022-03-09] MEDS: PANTOPRAZOLE 40 MG TABLET PO (10:30)
--- NOTE | 2022-03-09 10:59 | PM.IMPN ---
Progress Note: A&P Assessment and Plan (1) Abscess of sigmoid colon due to diverticulitis: Code(s): K57.20 - Diverticulitis of large intestine with perforation and abscess without bleeding Status: Acute Assessment and Plan: patient presented with left lower quadrant pain and diarrhea CT showed acute sigmoid diverticulitis with possible small peridiverticular abscess. appreciate general surgery consultation continue IV Zosyn full liquid diet analgesics available as needed (2) Renal failure: Code(s): N19 - Unspecified kidney failure Status: Acute Assessment and Plan: His creatinine in summer of 2020 and was 1.44; no labs have been done since that time in this EMR. creatinine was elevated at 1.7 on presentation suspect this to be pre renal secondary to decreased oral intake over the previous several days continue with IV fluid rehydration. Monitor urine output creatinine with slight improvement to 1.6 today. hold valsartan-hydrochlorothiazide and metformin and avoid any additional nephrotoxic agents monitor BMP consider nephrology consultation if no further improvement or if worsening (3) Left renal mass: Code(s): N28.89 - Other specified disorders of kidney and ureter Status: Acute Assessment and Plan: CT of the abdomen with incidental intermediate density masses of the kidney recommend contrast MRI follow-up not able to receive contrast at this time given YOLANDA. continue to monitor renal function and proceed with MRI when clinically appropriate patient recalls being told he had a kidney cyst in the past however no prior imaging is available to review (4) Type 2 diabetes mellitus: Code(s): E11.9 - Type 2 diabetes mellitus without complications Status: Acute Assessment and Plan: blood sugars have been well controlled continue Accu-Cheks, sliding scale insulin, hypoglycemic protocol home metformin on hold check updated A1c (5) Essential (primary) hypertension: Code(s): I10 - Essential (primary) hypertension Status: Acute Assessment and Plan: Blood pressures reviewed and have been stable. Last BP 139/64 continue amlodipine valsartan-HCTZ is on hold. monitor BP trends (6) History of tobacco use: Code(s): Z87.891 - Personal history of nicotine dependence Status: Acute Assessment and Plan: patient reports he quit smoking and now chews Nicorette gum as needed 2 mg nicotine gum as needed Subjective Date/time seen: 03/09/22 10:59 Interval history: Date of service: 03/09/2022 Yong Barton is a 61-year-old male with a history of hypertension, hyperlipidemia, type 2 diabetes mellitus, and asthma who is seen in follow-up for diverticulitis with small abscess. He is feeling a little bit better today. Yesterday he stated his pain was about a as 10 in currently he rates his pain as 5/10. He describes an aching discomfort in his left lower quadrant. His abdomen is sore with movement or with deep breaths. He was able to tolerate clear liquids this morning. He denies nausea, vomiting, fever, or chills. He has not had a bowel movement today. Denies rectal bleeding. Denies dizziness, lightheadedness, weakness. He is able to ambulate without difficulty. He denies dysuria or hematuria. Review of Systems Review of Systems: All systems reviewed & are unremarkable except as noted in HPI and below Exam Narrative: General: obese, well-appearing 61-year-old male, sitting up in bed, comfortable, NARD Neuro: awake, alert and oriented x4, speech clear, no focal neuro deficits noted HEENMT: normocephalic, atraumatic, EOMI, sclerae anicteric, moist oral mucosa Respiratory: clear to auscultation bilaterally, nonlabored breathing Cardio: regular rate, regular rhythm with S1-S2 Abdomen: nondistended, normoactive bowel sounds, soft, mildly tender to
[2022-03-09 11:26] LABS: Glucose Point of Care 136 mg/dl (65-105)
[2022-03-09] MEDS: POTASSIUM CHLORIDE 20 MEQ TABLET PO (12:45)
[2022-03-09] MEDS: NICOTINE (*PBKC) 2 MG GUM PO (12:46)
[2022-03-09] MEDS: HYDROcodone/acetaminophen (*CRX) 7.5-325 MG TABLET 1 TAB PO ×2 (14:15→20:23)
[2022-03-09 16:40] LABS: Glucose Point of Care 99 mg/dl (65-105)
[2022-03-09] MEDS: amLODIPine BESYLATE 5 MG TABLET PO (20:21)
[2022-03-09 21:00] LABS: Glucose Point of Care 80 mg/dl (65-105)
[2022-03-10] MEDS: HYDROcodone/acetaminophen (*CRX) 7.5-325 MG TABLET 1 TAB PO ×2 (03:06→12:25)
[2022-03-10 04:53] VITALS: BP 132/65; PULSE 56; RESP 20; TEMP 36.1; O2SAT 90
[2022-03-10 05:03] LABS: Hematocrit 31.7 % (42.0-52.0); Mean Corpuscular HGB Conc 31.5 g/dl (32-36); Mean Corpuscular Hemoglobin 30.2 pg (26-34); Mean Corpuscular Volume 95.8 fl (80-100); Mean Platelet Volume 10.8 fl (7.4-10.4); Platelet Count Result 224 k/mm3 (150-375); Red Blood Count 3.31 M/mm3 (4.6-6.20); Red Cell Distribution Width 13.4 % (11.5-14.5); White Blood Count 5.1 K/mm3 (4.5-10.0)
[2022-03-10 05:18] LABS: Anion Gap 8 mmol/L (8-16); Blood Urea Nitrogen 15 mg/dL (9-20); Calcium 8.8 mg/dL (8.4-10.2); Carbon Dioxide 28 mmol/L (22-30); Chloride 102 mmol/L (98-107); Estimated CRCL calculation 79 ml/min; Estimated Glomerular Filt Rate > 60; Glucose 103 mg/dL (65-110); Magnesium 1.6 mg/dL (1.6-2.3); Potassium 3.5 mmol/L (3.4-5.0); Sodium 138 mmol/L (137-145)
[2022-03-10] MEDS: SODIUM CHLORIDE 0.9% IV 1,000 ML 125 ML IV CONT (06:08)
[2022-03-10] MEDS: LEVOTHYROXINE SODIUM 25 MCG TABLET BY MOUTH (06:11)
[2022-03-10] MEDS: LEVOTHYROXINE SODIUM 100 MCG TABLET 200 MCG PO (06:12)
[2022-03-10 08:11] LABS: Glucose Point of Care 107 mg/dl (65-105)
[2022-03-10] MEDS: AZELASTINE HCL NASAL 0.1% 137 MCG/SPR 30 ML BTL 2 SPRAY NASAL (08:45)
[2022-03-10] MEDS: PANTOPRAZOLE 40 MG TABLET PO (08:46)
[2022-03-10] MEDS: carvediloL 25 MG TABLET PO (08:46)
[2022-03-10] MEDS: OMEGA 3 POLYUNSAT FATTY ACIDS 1 GM CAP PO (08:46)
[2022-03-10] MEDS: CITALOPRAM HYDROBROMIDE 10 MG TABLET PO (08:46)
[2022-03-10] MEDS: CHOLECALCIFEROL 1,000 UNITS TABLET 1000 UNITS PO (08:46)
[2022-03-10] MEDS: MULTIVITAMINS THERAPEUTIC TAB (*BKC) 1 TABLET PO (08:46)
[2022-03-10] MEDS: FENOFIBRATE 160 MG TABLET PO (08:46)
--- NOTE | 2022-03-10 09:27 | PM.PNGS ---
Progress Note: A&P Assessment and Plan (1) Abscess of sigmoid colon due to diverticulitis: Code(s): K57.20 - Diverticulitis of large intestine with perforation and abscess without bleeding Status: Acute Assessment and Plan: WBC remains normal and his tenderness has improved. Will advance to a low fiber diet for lunch. Consult the dietitian for education on low vs high fiber diet. From our standpoint, okay to discharge on oral antibiotics later today if tolerating his diet. Follow-up with Dr. Santoro in 2 weeks. (2) Renal failure: Code(s): N19 - Unspecified kidney failure Status: Acute Assessment and Plan: Resolving. Cr down to 1.2. Adequate urine output. (3) Left renal mass: Code(s): N28.89 - Other specified disorders of kidney and ureter Status: Acute Assessment and Plan: Further workup per Hospitalist/PCP (4) Type 2 diabetes mellitus: Code(s): E11.9 - Type 2 diabetes mellitus without complications Status: Acute (5) Essential (primary) hypertension: Code(s): I10 - Essential (primary) hypertension Status: Acute Plan I have discussed the patient's case and plan of care with Dr. Santoro. Subjective Subjective Date/Time Seen: 03/10/22 09:27 Patient reports: no new complaints, feels better, pain is less, tolerating liquids well, flatus, bowel movement and afebrile Interval history: Patient seen and examined. He reports feeling much better today even yesterday. Abdominal pain and tenderness continues to improve. Tolerating liquids with no nausea or vomiting. Review of Systems Review of Systems: All systems reviewed & are unremarkable except as noted in HPI and below Exam Const: General: comfortable and no acute distress Orientation/consciousness: patient oriented x3 GI: Inspection: non-distended GI Palp: Yes Soft to palpation, Yes Tenderness to palpation present (GI) (LLQ, improved) and No Guarding due to palpation present (GI) Auscultation: normal bowel sounds Objective Data Vital Signs Vital Signs: Vital Signs - 24 hr 03/09/22 14:00 03/09/22 20:19 03/09/22 20:21 Temperature 98.3 F 97.5 F L Pulse Rate 53 L 58 L 58 L Respiratory Rate 16 20 Blood Pressure 119/59 L 142/57 H Pulse Oximetry 90 96 03/10/22 04:53 Temperature 97 F L Pulse Rate 56 L Respiratory Rate 20 Blood Pressure 132/65 Pulse Oximetry 90 Intake/Output Intake/Output: Intake & Output 03/07/22 03/08/22 03/09/22 03/10/22 23:59 23:59 23:59 23:59 Intake Total 100 4940 2360 Output Total 425 800 Balance -325 4140 2360 Meds/Results Medications: Active Medications Generic Name Dose Route Start Last Admin Trade Name Freq PRN Reason Stop Dose Admin Acetaminophen 650 mg 03/08/22 15:58 Acetaminophen 325 Mg Tablet PO Q6H PRN Mild Pain (1-3) or Fever Hydrocodone Bitart/Acetaminophen 1 tab 03/08/22 15:58 03/10/22 03:06 Hydrocodone/Acetaminophen (*Crx) 7.5-325 Mg Tablet PO 1 tab Q6H PRN Administration Pain Rated 4-6 Albuterol 2 puff 03/08/22 19:13 Albuterol Sulfate (*Sp) Aerosol 1 Puff INHALATION Q4HRT PRN wheezing Amlodipine Besylate 5 mg 03/08/22 21:00 03/09/22 20:21 Amlodipine Besylate 5 Mg Tablet PO 5 mg HS JESSA Administration Azelastine HCl 2 spray 03/09/22 09:00 03/10/22 08:45 Azelastine Hcl Nasal 0.1% 137 Mcg/Spr 30 Ml Btl NASAL 2 spray DAILY JESSA Administration Carvedilol 25 mg 03/08/22 21:00 03/10/22 08:46 Carvedilol 25 Mg Tablet PO 25 mg Q12H JESSA Administration Citalopram Hydrobromide 10 mg 03/09/22 09:00 03/10/22 08:46 Citalopram Hydrobromide 10 Mg Tablet PO 10 mg DAILY JESSA Administration Dextrose 12.5 gm 03/08/22 15:58 Dextrose 50% 25 Gm/50 Ml Syringe IV PUSH PRN PRN Hypoglycemia Protocol Fenofibrate 160 mg 03/09/22 09:00 03/10/22 08:46 Fenofibrate 160 Mg Tablet PO 160 mg DAILY JESSA Administrat
[2022-03-10] MEDS: FLUTICASONE/SALMETEROL 115-21 MCG INHALER 1 PUFF 2 PUFF INHALATION (09:55)
[2022-03-10 09:57] VITALS: O2SAT 94
[2022-03-10 10:30] VITALS: BP 138/78; PULSE 50; RESP 20; TEMP 36.9; O2SAT 94
--- NOTE | 2022-03-10 10:47 | PCDIET ---
Dietitian consult for Low fiber/High fiber diet instruction. See Nutritional Teaching Intervention. Thank you for the consult.
[2022-03-10 11:24] LABS: Glucose Point of Care 138 mg/dl (65-105)
--- NOTE | 2022-03-10 12:41 | P.DS_ITS ---
DS: Admitting Diagnosis Discharge Date 03/10/22 Admitting Diagnosis diverticulitis DS: Discharge Diagnosis Discharge Diagnosis (1) Abscess of sigmoid colon due to diverticulitis: Code(s): K57.20 - Diverticulitis of large intestine with perforation and abscess without bleeding Status: Acute Assessment and Plan: patient presented with left lower quadrant pain and diarrhea * CT showed acute sigmoid diverticulitis with possible small peridiverticular abscess. * appreciate general surgery consultation * continue IV Zosyn, will switch to augmentin/flagyl on discharge for 10 more days per general surgery * tolerating diet, minimal pain, moving bowels * stable for discharge per surgery (2) Renal failure: Code(s): N19 - Unspecified kidney failure Status: Acute Assessment and Plan: His creatinine in summer and was 1.44; no labs have been done since that time in this EMR. * creatinine was elevated at 1.7 on presentation * suspect this to be pre renal secondary to decreased oral intake over the previous several days * IV fluid rehydration. Monitored urine output * held valsartan-hydrochlorothiazide and metformin, avoided any additional nephrotoxic agents * monitored BMP * Significantly improved, creat 1.2 today (3) Left renal mass: Code(s): N28.89 - Other specified disorders of kidney and ureter Status: Acute Assessment and Plan: CT of the abdomen with incidental intermediate density masses of the kidney * recommend contrast MRI follow-up * not able to receive contrast initially due to YOLANDA. * patient recalls being told he had a kidney cyst in the past however no prior imaging is available to review * Spoke w/ radiologist. We will obtain MRI today now that his renal function is improved. He will follow up with his pcp for results. (4) Type 2 diabetes mellitus: Code(s): E11.9 - Type 2 diabetes mellitus without complications Status: Acute Assessment and Plan: blood sugars have been well controlled * Accu-Cheks, sliding scale insulin, hypoglycemic protocol * home metformin on hold (5) Essential (primary) hypertension: Code(s): I10 - Essential (primary) hypertension Status: Acute Assessment and Plan: Blood pressures reviewed and have been stable. Last BP 132/65 * continue amlodipine * valsartan-HCTZ is on hold. okay to resume now that renal function improved. (6) History of tobacco use: Code(s): Z87.891 - Personal history of nicotine dependence Status: Acute Assessment and Plan: patient reports he quit smoking and now chews Nicorette gum as needed * 2 mg nicotine gum as needed DS: Summary Hospital Course Reason for hospitalization: 61-year-old male with hypertension, dyslipidemia, diabetes, and hypothyroidism, admitted for diverticulitis. Please see HPI for further details. Hospital Course: Please see above for details of hospital course. Status at Discharge Cognitive/behavioral status at discharge: stable Functional status at discharge: independent ambulation Overall status at discharge: patient is progressing back to baseline Time Spent with Patient Time attestation: Total time spent providing and/or coordinating discharge services: 35 Time spent: Greater than 30 minutes Exam Narrative: General: obese, well-appearing 61-year-old male, sitting up in bed, comfortable, NARD Neuro
--- NOTE | 2022-03-10 12:41 | PM.DS ---
DS: Admitting Diagnosis Discharge Date 03/10/22 Admitting Diagnosis diverticulitis DS: Discharge Diagnosis Discharge Diagnosis (1) Abscess of sigmoid colon due to diverticulitis: Code(s): K57.20 - Diverticulitis of large intestine with perforation and abscess without bleeding Status: Acute Assessment and Plan: patient presented with left lower quadrant pain and diarrhea CT showed acute sigmoid diverticulitis with possible small peridiverticular abscess. appreciate general surgery consultation continue IV Zosyn, will switch to augmentin/flagyl on discharge for 10 more days per general surgery tolerating diet, minimal pain, moving bowels stable for discharge per surgery (2) Renal failure: Code(s): N19 - Unspecified kidney failure Status: Acute Assessment and Plan: His creatinine in summer of 2020 and was 1.44; no labs have been done since that time in this EMR. creatinine was elevated at 1.7 on presentation suspect this to be pre renal secondary to decreased oral intake over the previous several days IV fluid rehydration. Monitored urine output held valsartan-hydrochlorothiazide and metformin, avoided any additional nephrotoxic agents monitored BMP Significantly improved, creat 1.2 today (3) Left renal mass: Code(s): N28.89 - Other specified disorders of kidney and ureter Status: Acute Assessment and Plan: CT of the abdomen with incidental intermediate density masses of the kidney recommend contrast MRI follow-up not able to receive contrast initially due to YOLANDA. patient recalls being told he had a kidney cyst in the past however no prior imaging is available to review Spoke w/ radiologist. We will obtain MRI today now that his renal function is improved. He will follow up with his pcp for results. (4) Type 2 diabetes mellitus: Code(s): E11.9 - Type 2 diabetes mellitus without complications Status: Acute Assessment and Plan: blood sugars have been well controlled Accu-Cheks, sliding scale insulin, hypoglycemic protocol home metformin on hold (5) Essential (primary) hypertension: Code(s): I10 - Essential (primary) hypertension Status: Acute Assessment and Plan: Blood pressures reviewed and have been stable. Last BP 132/65 continue amlodipine valsartan-HCTZ is on hold. okay to resume now that renal function improved. (6) History of tobacco use: Code(s): Z87.891 - Personal history of nicotine dependence Status: Acute Assessment and Plan: patient reports he quit smoking and now chews Nicorette gum as needed 2 mg nicotine gum as needed DS: Summary Hospital Course Reason for hospitalization: 61-year-old male with hypertension, dyslipidemia, diabetes, and hypothyroidism, admitted for diverticulitis. Please see HPI for further details. Hospital Course: Please see above for details of hospital course. Status at Discharge Cognitive/behavioral status at discharge: stable Functional status at discharge: independent ambulation Overall status at discharge: patient is progressing back to baseline Time Spent with Patient Time attestation: Total time spent providing and/or coordinating discharge services: 35 Time spent: Greater than 30 minutes Exam Narrative: General: obese, well-appearing 61-year-old male, sitting up in bed, comfortable, NARD Neuro: awake, alert and oriented x4, speech clear, no focal neuro deficits noted HEENMT: normocephalic, atraumatic, EOMI, sclerae anicteric, moist oral mucosa Respiratory: clear to auscultation bilaterally, nonlabored breathing Cardio: regular rate, regular rhythm with S1-S2 Abdomen: nondistended, normoactive bowel sounds, soft, minimally tender to palpation of left lower quadrant Extremities: no edema, erythema, or tenderness to palpation, DP pulses 2+ bilaterally Skin: no rashes or lesions
[2022-03-10 14:18] VITALS: BP 138/56; PULSE 50; RESP 20; TEMP 36.4; O2SAT 95
== END 2022-03-10 17:04 | disposition home or self-care (01) ==
LOC: ANHED 13:42 → ANH3MEDSUR 16:01 → ANH2MED 18:10
PROVIDERS: Physician Assistant; Admitting Provider Family Medicine; Emergency Provider Emergency Medicine; PCP Internal Medicine; Visit Provider Internal Medicine
DX: K57.80 Diverticulitis of intestine, part unspecified, with perforation and abscess without bleeding (principal); N28.89 Other specified disorders of kidney and ureter; N19 Unspecified kidney failure; I10 Essential (primary) hypertension; E78.5 Hyperlipidemia, unspecified; J45.909 Unspecified asthma, uncomplicated; E11.9 Type 2 diabetes mellitus without complications; E03.9 Hypothyroidism, unspecified; Z87.891 Personal history of nicotine dependence; Z79.51 Long term (current) use of inhaled steroids; Z79.891 Long term (current) use of opiate analgesic; Z79.84 Long term (current) use of oral hypoglycemic drugs; E66.01 Morbid (severe) obesity due to excess calories; Z68.41 Body mass index [BMI] 40.0-44.9, adult; Z20.822 Contact with and (suspected) exposure to COVID-19
CPT/HCPCS: 36415; 74176; 74183; 80048; 80053; 81001; 82948; 83690; 83735; 85025; 85027; 94640; 96361; 96365; 96366; 96375; 96376; A9270; A9577; C9803; G0378; J2270; J2543; J7030; U0003; U0005

== ENCOUNTER 2023-09-27 13:14 | Outpatient (CLI) | payer BC, SELFPAY ==
--- NOTE | ~2023-09-27 | XR_ITS ---
XR chest 2V DATE: 09/27/2023 13:40 INDICATION: Productive cough for 2 weeks. History of asthma. TECHNIQUE: PA and lateral views COMPARISON: 10/14/2021 view chest FINDINGS: Patchy infiltrate or atelectasis in the lower lung zones, left greater than right. Borderline heart size. No hilar or mediastinal enlargement is evident. No pleural effusion or pulmona ry vascular congestion or pneumothorax. IMPRESSION: Mild infiltrate or atelectasis in the lower lung zones, left greater than right Reviewed, dictated and finalized at location L. [facility] IMPRESSION: Mild infiltrate or atelectasis in the lower lung zones, left greate r than right
== END 2023-09-27 13:15 | disposition home or self-care (01) ==
PROVIDERS: PCP Internal Medicine; Visit Provider Internal Medicine
DX: R91.8 Other nonspecific abnormal finding of lung field (principal); R05.9 Cough, unspecified
CPT/HCPCS: 71046